=== PATIENT | female | born 1960 | race Two or more races ===

== ENCOUNTER 2017-12-29 14:52 | Outpatient (CLI) | payer OTHER | END 2017-12-29 15:01 | disposition home or self-care (01) | LOC: MAMO-SONO 14:52 | DX: Z12.31 Encounter for screening mammogram for malignant neoplasm of breast (principal); N64.89 Other specified disorders of breast; N64.4 Mastodynia; N60.11 Diffuse cystic mastopathy of right breast ==

== ENCOUNTER 2019-03-18 08:41 | Outpatient (CLI) | payer OTHER | END 2019-03-18 08:48 | disposition home or self-care (01) | LOC: MAMO-SONO 08:41 | DX: Z12.31 Encounter for screening mammogram for malignant neoplasm of breast (principal); Z87.898 Personal history of other specified conditions; N60.11 Diffuse cystic mastopathy of right breast ==

== ENCOUNTER 2019-03-18 11:59 | Outpatient (CLI) | payer OTHER | END 2019-03-18 12:12 | disposition home or self-care (01) | LOC: NUCLEAR 11:59 | DX: M81.0 Age-related osteoporosis without current pathological fracture (principal) ==

== ENCOUNTER 2020-03-23 11:03 | Outpatient (CLI) | payer OTHER | END 2020-03-23 14:46 | disposition home or self-care (01) | LOC: MAMO-SONO 11:03 | PROVIDERS: ATTEND Obstetrics & Gynecology | DX: Z12.31 Encounter for screening mammogram for malignant neoplasm of breast (principal); N64.59 Other signs and symptoms in breast; M25.512 Pain in left shoulder; M75.42 Impingement syndrome of left shoulder ==

== ENCOUNTER 2021-07-22 12:58 | Outpatient (CLI) | payer OTHER | END 2021-07-22 13:09 | disposition home or self-care (01) | LOC: MAMO-SONO 12:58 | PROVIDERS: ATTEND Obstetrics & Gynecology | DX: N60.11 Diffuse cystic mastopathy of right breast (principal) ==

== ENCOUNTER 2022-08-22 09:59 | Outpatient (CLI) | payer OTHER | END 2022-08-22 10:04 | disposition home or self-care (01) | LOC: MAMO-SONO 09:59 | PROVIDERS: ATTEND Obstetrics & Gynecology | DX: N60.11 Diffuse cystic mastopathy of right breast (principal) ==

== ENCOUNTER 2022-08-22 12:39 | Outpatient (CLI) | payer OTHER | END 2022-08-22 12:44 | disposition home or self-care (01) | LOC: NUCLEAR 12:39 | PROVIDERS: ATTEND Obstetrics & Gynecology | DX: M81.0 Age-related osteoporosis without current pathological fracture (principal) ==